=== PATIENT | female | born 1955 | race Caucasian/White ===

== ENCOUNTER 2020-05-24 06:00 | Outpatient (RCR) | payer OTHER, SELFPAY | END 2020-06-23 23:59 | disposition home or self-care (01) | LOC: SPT 06:00 | PROVIDERS: Family Provider Family Medicine; PCP Family Medicine; Referring Provider Internal Medicine; Visit Provider Internal Medicine | DX: M54.32 Sciatica, left side (principal) | CPT/HCPCS: 97110; 97116; 97161 ==

== ENCOUNTER 2020-06-24 06:00 | Outpatient (RCR) | payer OTHER, SELFPAY | END 2020-07-24 23:59 | disposition home or self-care (01) | LOC: SPT 06:00 | PROVIDERS: Family Provider Family Medicine; PCP Family Medicine; Referring Provider Internal Medicine; Visit Provider Internal Medicine | DX: M54.32 Sciatica, left side (principal) | CPT/HCPCS: 97110 ==

== ENCOUNTER 2023-05-09 09:52 | Outpatient (CLI) | payer OTHER, SELFPAY ==
--- NOTE | 2023-05-09 10:17 | XR_ITS ---
WS: [id number] Exam: XR knee LT 1-2V [id number] Date/Time of Exam: 05/09/2023 10:27 AM Reason For Exam: DECREASED ROM,SWELLING,WEAKNESS, TENDERNESS No acute fracture. Tricompartmental degenerative change of the knee most severe involving the medial compartment. Spurring of the posterior patella and distal femur. No joint effusion. Soft tissues are unremarkable. IMPRESSION: 1. 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 2. No fracture.
--- NOTE | 2023-05-09 10:17 | XR_ITS ---
WS: [id number] Exam: XR hand RT 2V [id number] Date/Time of Exam: 05/09/2023 10:27 AM Reason For Exam: DECREASED ROM, SWELLING,WEAKNESS, TENDERNESS No acute fracture or dislocation. Moderately advanced degenerative changes in the IP and MP joints. S oft tissues are unremarkable. IMPRESSION: 1. Degenerative changes most marked in the DIP joints. 2. No fracture or other significant finding.
--- NOTE | 2023-05-09 10:17 | XR_ITS ---
WS: [id number] Exam: XR lumbar spine 2-3V* [id number] Date/Time of Exam: 05/09/2023 10:27 AM Reason For Exam: DECREASED ROM, SWELLING,WEAKNESS,TENDERNESS No fracture or dislocation. Mild spondylosis. Disc spaces relatively well-maintained. Facet DJD from L3-S1. Slight wedge deformity of T12 may represent normal variant versus old mild low-grade compressi on. IMPRESSION: 1. No lumbar fracture or malalignment. 2. Mild degenerative changes. 3. Mild wedge deformity of T12 that may represent normal variant versus old mild compression.
--- NOTE | 2023-05-09 10:17 | XR_ITS ---
WS: [id number] Exam: XR shoulder RT min 2V* [id number] Date/Time of Exam: 05/09/2023 10:27 AM Reason For Exam: DECREASED ROM/SWELLING,WEAKNESS TENDERNESS No fracture or dislocation. Mild DJD of the glenohumeral joint and the AC joint. Normal soft tissues. IMPRESSION: 1. Mild DJD.
== END 2023-05-09 09:53 | disposition home or self-care (01) ==
PROVIDERS: PCP Internal Medicine; Visit Provider Dermatology
DX: Z02.71 Encounter for disability determination (principal); M19.011 Primary osteoarthritis, right shoulder; M53.86 Other specified dorsopathies, lumbar region; M17.12 Unilateral primary osteoarthritis, left knee; M47.817 Spondylosis without myelopathy or radiculopathy, lumbosacral region; M43.8X4 Other specified deforming dorsopathies, thoracic region; M19.041 Primary osteoarthritis, right hand
CPT/HCPCS: 72100; 73030; 73120; 73560

== ENCOUNTER → 2023-12-23 07:36 | Outpatient (BNVA) | payer OTHER, SELFPAY | PROVIDERS: PCP Internal Medicine; Visit Provider Nurse Practitioner Family | DX: R30.0 Dysuria (principal) | CPT/HCPCS: 81000; 87077; 87086; 87184 ==

== ENCOUNTER → 2024-10-05 07:46 | Outpatient (BNVA) | payer MEDICARE, SELFPAY | PROVIDERS: PCP Internal Medicine; Visit Provider Podiatrist Foot & Ankle Surgery | DX: M79.671 Pain in right foot (principal); M20.21 Hallux rigidus, right foot; M21.611 Bunion of right foot; L84 Corns and callosities | CPT/HCPCS: 73630; 99204 ==